=== PATIENT | female | born 1990 | race Caucasian/White ===

== ENCOUNTER 2018-10-17 09:36 | Emergency (ER) | payer MEDICAID ==
[2018-10-17] MEDS: ONDANSETRON 4 MG INJ IV (10:16)
[2018-10-17] MEDS: ACETAMINOPHEN 325 MG TAB PO (10:16)
[2018-10-17] MEDS: KETOROLAC 15 MG INJ IV (10:17)
[2018-10-17] MEDS: ALBUTEROL 0.5% (NEB) 2.5 MG/0.5 ML AMP INH (10:17)
[2018-10-17] MEDS: IBUPROFEN 600 MG TAB PO (10:17)
[2018-10-17] MEDS: SOD CHLORIDE 0.9% 1,000 ML IV (10:18)
[2018-10-17 10:21] LABS: ADD MAN DIFF? NO
[2018-10-17 10:24] LABS: WHITE BLOOD COUNT 7.1 10^3/ul (4.8-10.8)
[2018-10-17 10:24] LABS: BASOPHILS % 0.3 % (0.0-2.0); EOSINOPHILS % 0.1 % (0.0-7.0); HEMOGLOBIN 12.2 g/dl (12.0-16.0); LYMPHOCYTES # 0.7 10^3/ul (0.8-2.9); LYMPHOCYTES % 9.8 % (15.0-51.0); MEAN CORPUSCULAR HEMOGLOBIN 27.8 pg (29.0-33.0); MEAN CORPUSCULAR HGB CONC 31.3 g/dl (32.0-37.0); MEAN CORPUSCULAR VOLUME 88.8 fl (82.0-101.0); MEAN PLATELET VOLUME 10.4 fl (7.4-10.4); MONOCYTES % 14.2 % (0.0-11.0); NEUTROPHIL # 5.3 10^3/ul (1.6-7.5); NEUTROPHILS % 75.3 % (39.0-77.0); PLATELET COUNT 218 10^3/UL (140-415); RED BLOOD COUNT 4.39 10^6/ul (4.20-5.40); RED CELL DISTRIBUTION WIDTH 13.1 % (11.5-14.5)
[2018-10-17 10:38] LABS: ADD UMIC YES; UR ASCORBIC ACID 40 mg/dL (NEGATIVE); UR BACTERIA MODERATE /HPF (NONE SEEN); UR BILIRUBIN (Dip) NEGATIVE (NEGATIVE); UR BLOOD (Dip) NEGATIVE (NEGATIVE); UR CLARITY CLOUDY (CLEAR); UR COLOR AMBER (YELLOW); UR GLUCOSE (Dip) NEGATIVE (NEGATIVE); UR KETONES (Dip) TRACE mg/dL (NEGATIVE); UR LEUKOCYTE ESTERASE (Dip) 1+ Leu/ul (NEGATIVE); UR MUCUS MANY /HPF (NONE SEEN); UR NITRITE (Dip) NEGATIVE (NEGATIVE); UR RBC 2 /HPF (0-5); UR SPECIFIC GRAVITY (Dip) 1.029 (1.003-1.030); UR SQUAMOUS EPITHELIAL CELL MANY /HPF (FEW); UR TOTAL PROTEIN (Dip) 1+ mg/dl (NEGATIVE); UR UROBILINOGEN (Dip) 1+ mg/dL (NEGATIVE); UR WBC 14 /HPF (0-5)
[2018-10-17 10:41] LABS: ALANINE AMINOTRANSFERASE 36 IU/L (13-69); ALBUMIN 4.3 g/dl (3.3-4.9); ALBUMIN/GLOBULIN RATIO 1.13; ALKALINE PHOSPHATASE 93 IU/L (42-121); ANION GAP 10 (5-13); ASPARTATE AMINO TRANSFERASE 46 IU/L (15-46); BILIRUBIN,INDIRECT 0.8 mg/dl (0-1.1); BILIRUBIN,TOTAL 0.8 mg/dl (0.2-1.3); BLOOD UREA NITROGEN 7 mg/dl (7-20); CALCIUM 9.2 mg/dl (8.4-10.2); CARBON DIOXIDE 27 mmol/L (21-31); CHLORIDE 102 mmol/L (97-110); CREATININE 0.68 mg/dl (0.44-1.00); Estimated GFR > 60 mL/min (>60); GLUCOSE 119 mg/dl (70-220); LIPASE 196 U/L (23-300); POTASSIUM 3.2 mmol/L (3.5-5.1); SODIUM 139 mmol/L (135-144); TOTAL PROTEIN 8.1 g/dl (6.1-8.1)
== END 2018-10-17 18:52 | disposition home or self-care (01) ==
LOC: E/R 09:36
DX: N39.0 Urinary tract infection, site not specified (principal); J10.1 Influenza due to other identified influenza virus with other respiratory manifestations; R40.2142 Coma scale, eyes open, spontaneous, at arrival to emergency department; R40.2252 Coma scale, best verbal response, oriented, at arrival to emergency department; R40.2362 Coma scale, best motor response, obeys commands, at arrival to emergency department
CPT/HCPCS: 36415; 71045; 80053; 81001; 81025; 83605; 83690; 85025; 87040; 87086; 87400; 94644; 96374; 96375; 99284-25

== ENCOUNTER 2018-10-18 12:15 | Inpatient (IN) | payer MEDICAID ==
[2018-10-18] MEDS: KETOROLAC 15 MG INJ IV (12:56)
[2018-10-18] MEDS: SOD CHLORIDE 0.9% 1,000 ML IV ×3 (12:56→21:34)
[2018-10-18 12:58] LABS: ADD MAN DIFF? NO
[2018-10-18 13:03] LABS: BASOPHILS % 0.2 % (0.0-2.0); EOSINOPHILS % 0.2 % (0.0-7.0); HEMOGLOBIN 12.1 g/dl (12.0-16.0); LYMPHOCYTES # 0.9 10^3/ul (0.8-2.9); MEAN CORPUSCULAR HEMOGLOBIN 28.1 pg (29.0-33.0); MEAN CORPUSCULAR VOLUME 90.5 fl (82.0-101.0); MEAN PLATELET VOLUME 10.4 fl (7.4-10.4); MONOCYTE # 0.9 10^3/ul (0.3-0.9); MONOCYTES % 11.3 % (0.0-11.0); NEUTROPHIL # 6.3 10^3/ul (1.6-7.5); NEUTROPHILS % 76.9 % (39.0-77.0); PLATELET COUNT 203 10^3/UL (140-415); RED BLOOD COUNT 4.31 10^6/ul (4.20-5.40); RED CELL DISTRIBUTION WIDTH 13.1 % (11.5-14.5)
[2018-10-18 13:03] LABS: WHITE BLOOD COUNT 8.2 10^3/ul (4.8-10.8)
[2018-10-18 13:08] LABS: ADD UMIC YES; UR ASCORBIC ACID 40 mg/dL (NEGATIVE); UR BACTERIA FEW /HPF (NONE SEEN); UR BILIRUBIN (Dip) NEGATIVE (NEGATIVE); UR BLOOD (Dip) NEGATIVE (NEGATIVE); UR CLARITY CLOUDY (CLEAR); UR COLOR AMBER (YELLOW); UR GLUCOSE (Dip) NEGATIVE (NEGATIVE); UR KETONES (Dip) TRACE mg/dL (NEGATIVE); UR LEUKOCYTE ESTERASE (Dip) TRACE Leu/ul (NEGATIVE); UR MUCUS MODERATE /HPF (NONE SEEN); UR NITRITE (Dip) NEGATIVE (NEGATIVE); UR RBC 2 /HPF (0-5); UR SPECIFIC GRAVITY (Dip) 1.026 (1.003-1.030); UR SQUAMOUS EPITHELIAL CELL MANY /HPF (FEW); UR TOTAL PROTEIN (Dip) 2+ mg/dl (NEGATIVE); UR UROBILINOGEN (Dip) 2+ mg/dL (NEGATIVE); UR WBC 18 /HPF (0-5)
[2018-10-18 13:21] LABS: ALANINE AMINOTRANSFERASE 38 IU/L (13-69); ALBUMIN 4.1 g/dl (3.3-4.9); ALBUMIN/GLOBULIN RATIO 1.05; ALKALINE PHOSPHATASE 84 IU/L (42-121); ANION GAP 14 (5-13); ASPARTATE AMINO TRANSFERASE 49 IU/L (15-46); BILIRUBIN,INDIRECT 0.8 mg/dl (0-1.1); BILIRUBIN,TOTAL 0.8 mg/dl (0.2-1.3); BLOOD UREA NITROGEN 6 mg/dl (7-20); CALCIUM 9.2 mg/dl (8.4-10.2); CARBON DIOXIDE 31 mmol/L (21-31); CHLORIDE 98 mmol/L (97-110); CREATININE 0.64 mg/dl (0.44-1.00); Estimated GFR > 60 mL/min (>60); GLUCOSE 116 mg/dl (70-220); LIPASE 129 U/L (23-300); POTASSIUM 3.1 mmol/L (3.5-5.1); SODIUM 143 mmol/L (135-144)
[2018-10-18 13:33] LABS: LACTIC ACID 1.3 mmol/L (0.5-2.0)
[2018-10-18] MEDS: CEFTRIAXONE 1 GM/50 ML (PMX) 50 ML IVPB (13:36)
[2018-10-18] MEDS ORDERED: NACL 0.9% 3 ML SYG IV (14:00)
[2018-10-18 14:19] LABS: MAGNESIUM 1.8 mg/dl (1.7-2.5)
[2018-10-18] MEDS: POTASSIUM CHLORIDE (SR) 20 MEQ TAB PO ×2 (14:32→18:35)
[2018-10-18] MEDS: ACETAMINOPHEN 325 MG TAB PO (15:36)
[2018-10-18] MEDS: OSELTAMIVIR 75 MG CAP PO ×2 (15:36→22:15)
[2018-10-18] MEDS: IBUPROFEN 600 MG TAB PO ×2 (15:36→20:05)
[2018-10-18] MEDS: ONDANSETRON 4 MG INJ IV (18:35)
[2018-10-18] MEDS: HYDROCODONE/APAP (5/325) TAB PO (22:15)
[2018-10-19] MEDS: GUAIFENESIN/DM 5ML CUP PO ×2 (03:15→17:42)
[2018-10-19] MEDS: SOD CHLORIDE 0.9% 1,000 ML IV ×4 (03:17→21:56)
[2018-10-19] MEDS: ONDANSETRON 4 MG INJ IV (05:55)
[2018-10-19] MEDS: IBUPROFEN 600 MG TAB PO ×2 (05:55)
[2018-10-19 06:04] LABS: ADD MAN DIFF? NO
[2018-10-19 06:20] LABS: BASOPHILS % 0.1 % (0.0-2.0); EOSINOPHILS % 0.6 % (0.0-7.0); HEMATOCRIT 33.8 % (37.0-47.0); HEMOGLOBIN 10.4 g/dl (12.0-16.0); LYMPHOCYTES # 1.1 10^3/ul (0.8-2.9); LYMPHOCYTES % 15.2 % (15.0-51.0); MEAN CORPUSCULAR HEMOGLOBIN 28.3 pg (29.0-33.0); MEAN CORPUSCULAR HGB CONC 30.8 g/dl (32.0-37.0); MEAN CORPUSCULAR VOLUME 92.1 fl (82.0-101.0); MEAN PLATELET VOLUME 10.7 fl (7.4-10.4); MONOCYTE # 0.9 10^3/ul (0.3-0.9); MONOCYTES % 12.8 % (0.0-11.0); NEUTROPHILS % 70.7 % (39.0-77.0); PLATELET COUNT 168 10^3/UL (140-415); RED BLOOD COUNT 3.67 10^6/ul (4.20-5.40); RED CELL DISTRIBUTION WIDTH 13.2 % (11.5-14.5)
[2018-10-19 06:50] LABS: ALANINE AMINOTRANSFERASE 29 IU/L (13-69); ALBUMIN 3.3 g/dl (3.3-4.9); ALBUMIN/GLOBULIN RATIO 1.03; ALKALINE PHOSPHATASE 71 IU/L (42-121); ANION GAP 9 (5-13); ASPARTATE AMINO TRANSFERASE 39 IU/L (15-46); BILIRUBIN,INDIRECT 0.7 mg/dl (0-1.1); BILIRUBIN,TOTAL 0.7 mg/dl (0.2-1.3); BLOOD UREA NITROGEN 6 mg/dl (7-20); CALCIUM 8.5 mg/dl (8.4-10.2); CARBON DIOXIDE 30 mmol/L (21-31); CHLORIDE 104 mmol/L (97-110); CHOL/HDL RATIO 3.2 RATIO; CHOLESTEROL 117 mg/dl (100-200); CREATININE 0.53 mg/dl (0.44-1.00); Estimated GFR > 60 mL/min (>60); GLUCOSE 92 mg/dl (70-220); HDL CHOLESTEROL 36 mg/dl (34-82); LDL CHOLESTEROL,CALCULATED 63 mg/dl; MAGNESIUM 1.8 mg/dl (1.7-2.5); PHOSPHORUS 3.1 mg/dl (2.5-4.9); POTASSIUM 3.6 mmol/L (3.5-5.1); SODIUM 143 mmol/L (135-144); TOTAL PROTEIN 6.5 g/dl (6.1-8.1); TRIGLYCERIDES 92 mg/dl (0-149)
[2018-10-19 06:56] LABS: HEMOGLOBIN A1C 5.1 % (0-5.9)
[2018-10-19 07:17] LABS: THYROID STIMULATING HORMONE 0.625 MIU/L (0.465-4.680)
[2018-10-19] MEDS: ACETAMINOPHEN 325 MG TAB PO (07:29)
[2018-10-19] MEDS: OSELTAMIVIR 75 MG CAP PO ×2 (09:14→21:55)
[2018-10-19] MEDS: IBUPROFEN 400 MG TAB PO ×2 (12:29→17:42)
[2018-10-19] MEDS: CEFTRIAXONE 1 GM/50 ML (PMX) 50 ML IVPB (13:30)
[2018-10-19] MEDS: HYDROCODONE/APAP (5/325) TAB PO (20:01)
[2018-10-20] MEDS: IBUPROFEN 400 MG TAB PO ×4 (00:09→18:10)
[2018-10-20] MEDS: GUAIFENESIN/DM 5ML CUP PO ×2 (02:34→15:03)
[2018-10-20] MEDS: SOD CHLORIDE 0.9% 1,000 ML IV ×3 (06:08→17:14)
[2018-10-20 06:39] LABS: ADD MAN DIFF? NO
[2018-10-20 06:40] LABS: WHITE BLOOD COUNT 5.5 10^3/ul (4.8-10.8)
[2018-10-20 06:40] LABS: BASOPHILS % 0.2 % (0.0-2.0); EOSINOPHILS # 0.2 10^3/ul (0.0-0.5); EOSINOPHILS % 3.3 % (0.0-7.0); HEMATOCRIT 30.9 % (37.0-47.0); HEMOGLOBIN 9.6 g/dl (12.0-16.0); LYMPHOCYTES # 1.6 10^3/ul (0.8-2.9); LYMPHOCYTES % 28.7 % (15.0-51.0); MEAN CORPUSCULAR HEMOGLOBIN 28.4 pg (29.0-33.0); MEAN CORPUSCULAR HGB CONC 31.1 g/dl (32.0-37.0); MEAN CORPUSCULAR VOLUME 91.4 fl (82.0-101.0); MEAN PLATELET VOLUME 10.7 fl (7.4-10.4); MONOCYTE # 0.5 10^3/ul (0.3-0.9); MONOCYTES % 8.7 % (0.0-11.0); NEUTROPHIL # 3.2 10^3/ul (1.6-7.5); NEUTROPHILS % 58.7 % (39.0-77.0); PLATELET COUNT 171 10^3/UL (140-415); RED BLOOD COUNT 3.38 10^6/ul (4.20-5.40)
[2018-10-20 07:06] LABS: ANION GAP 9 (5-13); BLOOD UREA NITROGEN 7 mg/dl (7-20); CALCIUM 8.5 mg/dl (8.4-10.2); CARBON DIOXIDE 28 mmol/L (21-31); CHLORIDE 107 mmol/L (97-110); CREATININE 0.53 mg/dl (0.44-1.00); Estimated GFR > 60 mL/min (>60); GLUCOSE 88 mg/dl (70-220); POTASSIUM 3.7 mmol/L (3.5-5.1); SODIUM 144 mmol/L (135-144)
[2018-10-20] MEDS: OSELTAMIVIR 75 MG CAP PO ×2 (09:36→21:34)
[2018-10-20] MEDS: POTASSIUM CHLORIDE (SR) 20 MEQ TAB PO (09:36)
[2018-10-20] MEDS: MAGNESIUM SULFATE 2 GM/50 ML 50 ML IVPB (09:40)
[2018-10-20 11:09] LABS: IRON 37 ug/dl (35-150)
[2018-10-20 11:19] LABS: % IRON SATURATION 13 % SAT (22-52); TOTAL IRON BINDING CAPACITY 294 ug/dl (241-421)
[2018-10-20] MEDS: CEFTRIAXONE 1 GM/50 ML (PMX) 50 ML IVPB (12:15)
[2018-10-20 12:30] LABS: FERRITIN 48.3 ng/ml (6.2-137.0)
[2018-10-21] MEDS: IBUPROFEN 400 MG TAB PO ×3 (00:46→12:29)
[2018-10-21] MEDS: SOD CHLORIDE 0.9% 1,000 ML IV ×3 (00:48→10:13)
[2018-10-21] MEDS: OSELTAMIVIR 75 MG CAP PO (10:11)
[2018-10-21] MEDS: SOD FERRIC GLUC COMPLX 125 MG in SOD CHLORIDE 0.9% 100 ML IVPB (11:18)
== END 2018-10-21 13:37 | disposition home or self-care (01) | DRG 872 ==
LOC: E/R 12:15 → 2NE 13:35
DX: A41.9 Sepsis, unspecified organism (principal); N39.0 Urinary tract infection, site not specified; J10.89 Influenza due to other identified influenza virus with other manifestations; K80.20 Calculus of gallbladder without cholecystitis without obstruction; E87.6 Hypokalemia; D50.9 Iron deficiency anemia, unspecified; E28.2 Polycystic ovarian syndrome
CPT/HCPCS: 36415; 71045; 74176; 76856; 80048; 80053; 80061; 81001; 81025; 82728; 83036; 83540; 83605; 83690; 83735; 84100; 84443; 84703; 85025; 87040; 87086; 87400; 94644; 96374; 96375; 99284-25; 99285-25